=== PATIENT | female | born 1965 | race Caucasian/White ===

== ENCOUNTER → 2018-03-23 07:19 | Emergency (ER) | payer OTHER ==
[2018-03-23] MEDS: DEXAMETHASONE 10 MG/ML 1 ML INJ IM (06:54)
[2018-03-23 06:55] LABS: URINE BLOOD (Dip) POC 1+ (NEGATIVE); URINE GLUCOSE (Dip) POC Negative (NEGATIVE); URINE KETONES (Dip) POC Negative (NEGATIVE); URINE LEUKOCYTE EST (Dip) POC 2+ (NEGATIVE); URINE NITRITE (Dip) POC Negative (NEGATIVE); URINE TOTAL PROTEIN POC Negative (NEGATIVE)
[2018-03-23] MEDS: KETOROLAC 60 MG INJ IM (06:55)
[2018-03-23] MEDS: DIAZEPAM 2 MG TAB PO (07:02)
== END | disposition home or self-care (01) ==
DX: M54.30 Sciatica, unspecified side (principal); I10 Essential (primary) hypertension
CPT/HCPCS: 81003; 81025; 96372; 99284-25

== ENCOUNTER 2018-04-29 20:33 | Emergency (ER) | payer OTHER ==
[2018-04-29] MEDS: KETOROLAC 30 MG INJ IM (21:37)
[2018-04-29 21:39] LABS: URINE BLOOD (Dip) POC 2+ (NEGATIVE); URINE GLUCOSE (Dip) POC Negative (NEGATIVE); URINE KETONES (Dip) POC Negative (NEGATIVE); URINE LEUKOCYTE EST (Dip) POC 1+ (NEGATIVE); URINE NITRITE (Dip) POC Negative (NEGATIVE); URINE TOTAL PROTEIN POC Negative (NEGATIVE)
== END 2018-04-29 23:23 | disposition home or self-care (01) ==
LOC: FTE 20:33
DX: M54.42 Lumbago with sciatica, left side (principal); J06.9 Acute upper respiratory infection, unspecified; N39.0 Urinary tract infection, site not specified; M54.41 Lumbago with sciatica, right side; I10 Essential (primary) hypertension
CPT/HCPCS: 81003; 96372; 99284-25

== ENCOUNTER 2018-07-23 03:22 | Emergency (ER) | payer OTHER ==
[2018-07-23] MEDS: ONDANSETRON (ODT) 4 MG TAB ODT (04:02)
[2018-07-23] MEDS: KETOROLAC 30 MG INJ IM (04:04)
[2018-07-23 04:06] LABS: ADD UMIC YES; UR ASCORBIC ACID NEGATIVE (NEGATIVE); UR BACTERIA FEW /HPF (NONE SEEN); UR BILIRUBIN (Dip) NEGATIVE (NEGATIVE); UR BLOOD (Dip) 1+ mg/dL (NEGATIVE); UR CLARITY CLEAR (CLEAR); UR COLOR YELLOW (YELLOW); UR GLUCOSE (Dip) NEGATIVE (NEGATIVE); UR KETONES (Dip) NEGATIVE (NEGATIVE); UR LEUKOCYTE ESTERASE (Dip) TRACE Leu/ul (NEGATIVE); UR NITRITE (Dip) NEGATIVE (NEGATIVE); UR RBC 2 /HPF (0-5); UR SPECIFIC GRAVITY (Dip) 1.006 (1.003-1.030); UR SQUAMOUS EPITHELIAL CELL FEW /HPF (FEW); UR TOTAL PROTEIN (Dip) NEGATIVE (NEGATIVE); UR UROBILINOGEN (Dip) NEGATIVE (NEGATIVE); UR WBC 3 /HPF (0-5)
[2018-07-23] MEDS: IPRATROPIUM (NEB) 0.5 MG/2.5 ML AMP NEB (04:09)
[2018-07-23] MEDS: ALBUTEROL 0.083% (NEB) 2.5 MG/3 ML AMP NEB (04:09)
== END 2018-07-23 04:53 | disposition home or self-care (01) ==
LOC: FTE 03:22
DX: R09.81 Nasal congestion (principal); R30.0 Dysuria; J45.901 Unspecified asthma with (acute) exacerbation; I10 Essential (primary) hypertension; M54.31 Sciatica, right side; J06.9 Acute upper respiratory infection, unspecified
CPT/HCPCS: 71045; 81001; 87086; 93005; 94664; 96372; 99285-25

== ENCOUNTER 2018-09-02 17:20 | Emergency (ER) | payer OTHER ==
[2018-09-02 19:21] LABS: URINE BLOOD (Dip) POC 1+ (NEGATIVE); URINE GLUCOSE (Dip) POC Negative (NEGATIVE); URINE KETONES (Dip) POC Negative (NEGATIVE); URINE LEUKOCYTE EST (Dip) POC Trace (NEGATIVE); URINE NITRITE (Dip) POC Negative (NEGATIVE); URINE TOTAL PROTEIN POC Negative (NEGATIVE)
[2018-09-03 08:26] LABS: URINE BLOOD (Dip) POC 1+ (NEGATIVE); URINE GLUCOSE (Dip) POC Negative (NEGATIVE); URINE KETONES (Dip) POC Negative (NEGATIVE); URINE LEUKOCYTE EST (Dip) POC Trace (NEGATIVE); URINE NITRITE (Dip) POC Negative (NEGATIVE); URINE TOTAL PROTEIN POC Negative (NEGATIVE)
== END 2018-09-02 19:38 | disposition home or self-care (01) ==
LOC: FTE 19:38
DX: R30.0 Dysuria (principal); M54.40 Lumbago with sciatica, unspecified side; I10 Essential (primary) hypertension
CPT/HCPCS: 81003; 87086; 99283